=== PATIENT | female | born 1950 | race Caucasian/White ===

== ENCOUNTER → 2024-08-19 | Outpatient (CLI) | payer MEDICARE, OTHER ==
[~2024-08-19] MED LIST: Albuterol Sulfate 2.5 MG/3 ML VIAL NEB ONE
== END | disposition home or self-care (01) ==
LOC: CP 01:01
PROVIDERS: ATTEND Physical Medicine & Rehabilitation
DX: R06.09 Other forms of dyspnea (principal); M41.9 Scoliosis, unspecified